=== PATIENT | female | born 1945 | race Caucasian/White ===

== ENCOUNTER 2019-06-06 08:30 | Outpatient (CLI) | payer MEDICARE ==
[2015-06-04 10:35] VITALS: BMI 25.8
[~2019-06-06 08:30] MED LIST: AMBIEN10 MG PO; AMBIEN5 MG PO; CELEXA20 MG PO; ZOCOR20 MG PO
== END 2019-06-06 09:00 | disposition home or self-care (01) ==
LOC: D.MAMMO 08:30
PROVIDERS: ATTEND Family Medicine
DX: Z85.3 Personal history of malignant neoplasm of breast (principal)